=== PATIENT | female | born 1970 | race Caucasian/White ===

== ENCOUNTER 2019-09-12 19:19 | Emergency (ER) | payer MEDICAID ==
[~2019-09-12] VITALS: Ht 162.6 cm; Wt 56.0 kg
[2019-09-12 22:08] VITALS: BP 125/76
== END 2019-09-12 22:08 | disposition home or self-care (01) ==
LOC: ER 19:30
DX: J01.90 Acute sinusitis, unspecified (principal); J06.9 Acute upper respiratory infection, unspecified; Z98.890 Other specified postprocedural states
CPT/HCPCS: 99282

== ENCOUNTER 2019-09-18 21:31 | Emergency (ER) | payer BC, MEDICAID ==
[~2019-09-18] VITALS: Ht 167.6 cm; Wt 68.0 kg
[2019-09-18] MEDS ORDERED: IBUPROFEN 600MG TABLET PO STA (23:12)
[2019-09-19] MEDS ORDERED: LORAZEPAM 2MG/ML CPJ ONE (00:36)
[2019-09-19 01:26] LABS: CLARITY URINE CLOUDY (CLEAR); COLOR URINE YELLOW (YELLOW); KETONES URINE NEGATIVE (NEGATIVE); LEUKOCYTE ESTERASE URINE NEGATIVE (NEGATIVE); NITRITE URINE NEGATIVE (NEGATIVE); OCCULT BLOOD URINE NEGATIVE (NEGATIVE); PROTEIN URINE NEGATIVE (NEGATIVE); SPECIFIC GRAVITY URINE 1.017 (1.005-1.030); UROBILINOGEN URINE 0.2 E.U./dL (0.2-1.0)
[2019-09-19 03:18] VITALS: BP 118/72
== END 2019-09-19 03:18 | disposition home or self-care (01) ==
LOC: ER 21:31
DX: M54.5 Low back pain (principal); Z98.890 Other specified postprocedural states
CPT/HCPCS: 72100; 81003; 99284; J2060